=== PATIENT | male | born 1950 | race Caucasian/White ===

== ENCOUNTER 2024-10-07 09:13 | Outpatient (AMB) | payer MEDICARE, BC, SELFPAY ==
--- OUTSIDE RECORDS SUMMARY | 2024-10-07 09:26 | XMS_ITS | Clinical Summary ---
Author Organization [facility] Address [address] [place] [address] Care Team Providers Care Technician Plant And Maintenance Name Role Phone Unavailable Primary Care Provider Unavailabl e Immunizations Name Administration Dates Next Due Covid-19 (Pfizer) Dilution Required 07/24/2020 Social History Tobacco Use Types Packs/Day Years Used Date Smoking Tobacco: Never Assessed Sex and Gender Information Value Date Recorded Sex Assigned at Male 07/24/2020 1:02 PM EST Gender Identity Not on file Sexual Orientation Not on file Plan of Treatment Health Maintenance Due Date Last Done Comments Hepatitis C Screening 1950 Depression Screening 1964 Preventative Health Evaluation 1970 DTap / Tdap / Td (1 - Tdap) 08/01/1971 Colon Cancer Screening (Colonoscopy) 1997 Shingrix-Zoster Vaccine (1 of 2) 2002 Fall Risk Assessment 2017 Pneumococcal Vaccine (1 of 1 - PCV) 2017 COVID-19 Vaccine (2 - 2023-2 5 season) 2024 07/24/2020 Influenza Vaccine (#1) 2024 RSV Adult > 60+ Yrs or Pregn ant (1 - 1-dose 75+ series) 08/01/2027 Hepatitis B Vaccines Aged Out No long er eligible based on patient's age to complete this topic RSV Ped < 20 months Aged Out No longe r eligible based on patient's age to complete this topic Yohan Johnson Personal/Family Self 1950 [address] [place] [address]
--- NOTE | 2024-10-07 09:27 | A.SPINEOV_ITS ---
Vital Signs 10/07/24 09:29 Height 5 ft 10 in Weight 180 lb BMI 25.8 Intake Visit Reasons: LBP Intake Note: Mr. Johnson is here today c/o low back/sciatic pain. [place] [facility] [place] 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 HPI: This patient is complaining of a right sciatica for 6 months. The pain radiates from his buttock down to the right leg into his dawson. The pain is worse with walking and standing and improves when he sits down. Leaning forward over a shopping cart relieves the symptoms. He recently started specific exercises he has seen on YouTube which has improved the pain from 8 down to 2. The following conservative treatment options were tried without success: prednisone, tylenol, physical therapy, chiropractic therapy PMH: [facility] in 2019 with 2 stands. Hypertension, very causes removal Medications: Aspirin lisinopril metoprolol atorvastatin tamsulosin finasteride multivitamins Allergies: NSAIDs, high doses Social history: , retired Physical Exam: Pleasant male. Good physique. No neurological deficits for motor sensation and reflexes. Radiological Studies: MRI of the lumbar spine done at [facility] on 09/01/2024 shows [id number] L3-4 spinal stenosis and right L4-5 lateral recess stenosis. In the L4 and L5 nerve roots are compressed. In addition this lumbar degenerative disc disease L4-5. Impression/Plan: This patient is suffering from unilateral neurogenic claudication which is currently controlled with exercises. Other conservative treatments and medications have failed. I advised him to undergo an L3-4 and L4-5 hemilaminotomy to decompress the L4 and L5 nerve roots on the right side if the symptoms are becoming unbearable. Thank you for allowing me to participate in your patients care. total time spent was 50 minutes in counseling ,coordination of plan, personal review of imaging, surgical decision making and subsequent plan Jenaro Armas MD, PhD Spine Fellowship Trained Neurosurgeon Director, [facility] Coding Level of Care Code New Pt Level 4 (02038) Diagnoses Lumbar stenosis with neurogenic claudication M48.062
[2024-10-07 09:29] VITALS: BMI 25.8
== END 2024-10-07 10:38 | disposition home or self-care (01) ==
LOC: HO.HNS 09:14
PROVIDERS: PCP Internal Medicine; Visit Provider Neurological Surgery
DX: M48.062 Spinal stenosis, lumbar region with neurogenic claudication (principal)
CPT/HCPCS: 99204

== ENCOUNTER → 2024-10-07 09:13 | Outpatient (BNVA) | payer MEDICARE, BC, SELFPAY | PROVIDERS: PCP Internal Medicine; Visit Provider Neurological Surgery | DX: M48.062 Spinal stenosis, lumbar region with neurogenic claudication (principal) | CPT/HCPCS: 99202 ==